=== PATIENT | female | born 1960 | race Caucasian/White ===

== ENCOUNTER 2019-06-04 01:06 | Day surgery (SDC) | payer OTHER, SELFPAY ==
[2019-06-02 13:51] VITALS: BMI 48.0
--- NOTE | 2019-06-04 09:20 | PM.HPGS ---
History of Present Illness History of Present Illness Consent: Risks, benefits, and alternatives have been discussed and questions answered. Patient agrees to proceed with procedure. Chief complaint: Neoplasm Screening Narrative: Bree Iraheta is a 59 year old female for screening colonoscopy. There is a family history of colon cancer Meds Home Medications and Allergies Home Medications Medication Instructions Recorded Confirmed Type B-complex with vitamin C [Super B 1 tablet PO DAILY 06/02/19 06/02/19 History Complex-Vitamin C] Centrum Silver 1 tablet PO DAILY 06/02/19 06/02/19 History apixaban [Eliquis] 2.5 mg PO BID 06/02/19 06/02/19 History aripiprazole 2 mg PO DAILY 06/02/19 06/02/19 History biotin-silicon hmsq-E-kicpmirf 1 tablet PO DAILY 06/02/19 06/02/19 History budesonide-formoterol [Symbicort] 2 puff INHALATION BID 06/02/19 06/02/19 History diphenhydramine HCl [Allergy 25 mg PO HS PRN 06/02/19 06/02/19 History Medicine] escitalopram oxalate 20 mg PO DAILY 06/02/19 06/02/19 History hydrochlorothiazide 25 mg PO DAILY 06/02/19 06/02/19 History Allergies Allergy/AdvReac Type Severity Reaction Status Date / Time No Known Allergies Allergy Mild Verified 06/02/19 13:46 Exam Resp: Auscultation: clear to auscultation bilaterally Cardio: Rate: regular rate Rhythm: regular rhythm GI: GI Palp: Yes Soft to palpation and No Tenderness to palpation present (GI) Assessment and Plan Assessment and plan (1) Colon cancer screening: Code(s): Z12.11 - Encounter for screening for malignant neoplasm of colon Status: Acute Assessment and Plan: Colonoscopy with possible biopsy or polypectomy or cautery or injection of substances.
[2019-06-04 09:38] VITALS: BP 122/63; PULSE 76; RESP 18; TEMP 37.1; O2SAT 95
[2019-06-04] MEDS: LACTATED RINGERS 1,000 ML 150 ML IV CONT (09:52)
[2019-06-04 09:54] VITALS: BMI 46.4
--- NOTE | 2019-06-04 10:04 | WPDANESEPPF ---
Anes - Initial Pre Proc Eval Procedure: Operation Date: 06/04/19 10:00 Proposed Procedures p Screening Colonoscopy - Jordan Pérez MD Date/Time: 06/04/19 10:04 Surgeon: Jordan Pérez MD Pre Op Diagnosis: Neoplasm Screening Patient Data Age: 59 Gender: F Height: 5 ft 7 in Weight: 134.4 kg Last Vital Signs Temp 98.7 F 06/04/19 09:38 Pulse 76 06/04/19 09:38 Resp 18 06/04/19 09:38 BP 122/63 06/04/19 09:38 Pulse Ox 95 06/04/19 09:38 Allergies Allergy/AdvReac Type Severity Reaction Status Date / Time No Known Allergies Allergy Mild Verified 06/02/19 13:46 Home Medications Medication Instructions Recorded Confirmed Type B-complex with vitamin C [Super B 1 tablet PO DAILY 06/02/19 06/02/19 History Complex-Vitamin C] Centrum Silver 1 tablet PO DAILY 06/02/19 06/02/19 History apixaban [Eliquis] 2.5 mg PO BID 06/02/19 06/04/19 History aripiprazole 2 mg PO DAILY 06/02/19 06/04/19 History biotin-silicon mgid-T-nxmrzbaz 1 tablet PO DAILY 06/02/19 06/02/19 History budesonide-formoterol [Symbicort] 2 puff INHALATION BID 06/02/19 06/02/19 History diphenhydramine HCl [Allergy 25 mg PO HS PRN 06/02/19 06/02/19 History Medicine] escitalopram oxalate 20 mg PO DAILY 06/02/19 06/02/19 History hydrochlorothiazide 25 mg PO DAILY 06/02/19 06/02/19 History Patient hx anesthesia problems: none Family hx anesthesia problems: none Anes - Eval Final PreProcedure Day of Procedure 06/04/19 10:04 Patient weight: morbidly obese Heart: regular rate and rhythm Lungs: clear to auscultation Airway: Mallampati scale class III Neurological: alert and oriented Last oral intake: >/= 8 hours ASA classification: III Emergent: no Anesthetic plan: proceed Anesthesia type and monitoring: general GIVS and standard monitoring Informed Consent: The patient's anesthetic plan and its attendant risks and benefits were discussed with the patient/family/POA. Questions were solicited and answers provided to the satisfaction of the patient/family/POA.
[2019-06-04 10:25] VITALS: BP 89/53; PULSE 74; RESP 18; O2SAT 94
[2019-06-04 10:35] VITALS: BP 115/74; PULSE 81; RESP 25; O2SAT 94
[2019-06-04 10:45] VITALS: BP 115/65; PULSE 72; RESP 17; O2SAT 94
== END 2019-06-04 10:54 | disposition home or self-care (01) ==
PROVIDERS: PCP Family Medicine Adolescent Medicine; Visit Provider Internal Medicine Gastroenterology
PROC: 0DJD8ZZ Inspection of Lower Intestinal Tract, Via Natural or Artificial Opening Endoscopic (ICD-10-PCS; CPT 45378; principal; 2019-06-04 10:00)
DX: Z12.11 Encounter for screening for malignant neoplasm of colon (principal); D12.3 Benign neoplasm of transverse colon; D12.8 Benign neoplasm of rectum; K57.30 Diverticulosis of large intestine without perforation or abscess without bleeding; Z80.0 Family history of malignant neoplasm of digestive organs; Z79.01 Long term (current) use of anticoagulants; E66.01 Morbid (severe) obesity due to excess calories; Z68.42 Body mass index [BMI] 45.0-49.9, adult
CPT/HCPCS: 45380; 88305; J2704; J7120

== ENCOUNTER 2023-10-01 15:04 | Outpatient (CLI) | payer OTHER, MEDICARE, SELFPAY ==
--- NOTE | ~2023-10-01 | US_ITS ---
Thyroid ultrasound. Clinical History: Swelling, lump Findings: Real-time sonography of the thyroid gland was performed. The right lobe measures 5.2 x 1.9 x 1.4 cm. The left lobe measures 4.2 x 1.3 x 1.4 cm. The isthmus is 4 mm in AP diameter. There are 2 separate 3 mm hypoechoic nodules at the inferior right thyroid lobe. Impression: Tiny right thyroid lobe nodules, as above, which requires no further follow-up.. Reviewed, dictated and finalized at location M. Impression: Tiny right thyroid lobe nodules, as above, which requires no further follow-up. .
== END 2023-10-01 15:05 ==
LOC: MICIMG 15:06
PROVIDERS: PCP Family Medicine Adolescent Medicine; Visit Provider Nurse Practitioner Family
DX: E04.2 Nontoxic multinodular goiter (principal); R22.1 Localized swelling, mass and lump, neck
CPT/HCPCS: 76536

== ENCOUNTER 2024-07-01 13:47 | Outpatient (CLI) | payer OTHER, MEDICARE, SELFPAY ==
--- NOTE | ~2024-07-01 | CT_ITS ---
Non-contrast CT scan of the Abdomen and Pelvis Clinical indication: Right lower quadrant pain Technique: 2.5 mm axial scans were obtained through the abdomen and pelvis without intravenous or or al contrast. Dose reduction technique was used on this scan by utilizing automated exposure control a nd iterative reconstruction technique. The dose-length product (DLP) was 1097.73 mGy-cm. Findings: Images through the lung bases reveal 3 mm right middle lobe nodule. There is no evidence of renal or ureteral calculi. The kidneys and the ureters are nondilated. The liver, spleen, pancreas, and adrenals appear normal. Cholecystectomy clips are present. There is no aortic aneurysm. There is no evidence of bowel obstruction. Duodenal diverticulum noted. Images through the pelvis were performed. There is no evidence of ascites or lymphadenopathy. Urinary bladder unremarkable. Calcified uterine fibroid present. No other adnexal mass. Impression: No acute abnormality. Calcified fibroid. 3 mm right middle lobe nodule. Consider 12 month follow-up CT for a high-risk patient. Reviewed, dictated and finalized at location . Impression: No acute abnormality. Calcified fibroid. 3 mm right middle lobe nodule. Consider 12 month follow[facility]
== END 2024-07-01 13:48 | disposition home or self-care (01) ==
LOC: MICIMG 13:48
PROVIDERS: PCP Family Medicine Adolescent Medicine; Visit Provider Nurse Practitioner Family
DX: D25.9 Leiomyoma of uterus, unspecified (principal); R91.1 Solitary pulmonary nodule
CPT/HCPCS: 74176

== ENCOUNTER 2024-10-30 01:32 | Day surgery (SDC) | payer OTHER, MEDICARE, SELFPAY ==
[2024-10-17 13:13] VITALS: BMI 43.0
--- NOTE | 2024-10-17 13:31 | PC.NURSE ---
Spoke with PATIENT regarding medication ELIQUIS. PATIENT verbalizes understanding that the last dose is to be taken on 10/27/2024 and the Endoscopist will instruct them when to restart after the procedure.
--- OUTSIDE RECORDS SUMMARY | 2024-10-30 01:36 | XMS_ITS | Clinical Summary ---
Author Organization [facility] [address] [facility] Address [address] [place] [address] Care Team Providers Care Basting Marker Name Role Phone Bismark De La Rosa MD Primary Care Prov ider Chiqui Rhodes MD Unavailable [phone] Allergies No known active allergies Medications Eliquis 2.5 mg tablet 1 Active hydroCHLOROthia zide (HYDRODIURIL) 25 mg tablet 1 Active vitamin B complex capsule Take 1 capsule by mouth daily Active biotin 10,000 mcg capsule Active buPROPion XL (WELLBUTRIN XL) 150 mg 24 hr tablet 4 Active cholecalciferol (VITAMIN D-3) 5,000 unit capsule 5 Active FLUoxetine (PROzac) 40 mg capsule 3 Active multivitamin tablet 0 Active traZODone (DESYREL) 50 mg tablet 4 Active fluticasone-ume clidin-vilanter (Trelegy Ellipta) 200-62.5-25 mcg inhaler Inhale 1 puff daily 10 each 11 5 Active albuterol HFA (PROVENTIL HFA,VENTOLIN HFA,PROAIR HFA) 90 mcg/actuation inhalerIndicati ons:Shortness of breath USE 2 INHALATIONS BY MOUTH EVERY 6 HOURS NEEDED FOR WHEEZING OR SHORTNESS OF BREATH 25.5 g 3 5 Active montelukast (SINGULAIR) 10 mg tabletIndicatio ns:Shortness of breath TAKE 1 TABLET BY MOUTH NIGHTLY 90 tablet 3 5 Active Active Problems Problem Noted Date Diagnosed Date Snoring 07/23/2024 Assessment & Plan (07/23/2024 1:29 PM CDT): The patient presents with snoring and daytime hypersomnia. I have recommended proceeding with a nocturnal polysomnogram with a split night protocol if necessary and no MSLT. She will follow up here in 4 months. Morbid (severe) obesity due to excess calories 1 Body mass index (BMI) 45.0-49.9, adult 3 Encounters Date Type Department Care Team Description 09/30/2024 Telephone [facility] [address] [place] [address] Anna Bravo, [facility] Sleep Study Results 09/29/2024 Orders Only [facility] [place] [address] [place] [phone] Roberto Lainez MD HUMBERTO (obstructive sleep apnea) (Primary Dx) 09/26/2024 7:55 PM CDT - 09/26/2024 11:59 PM CDT Hospital Encounter [facility] [address] [place] [address] Snoring; Hypersomnia, unspecified Discharge Disposition: Discharge to home or self care 09/10/2024 3:12 PM CDT - 09/10/2024 11:59 PM CDT Hospital Encounter [facility] [address] [place] [phone] Screening mammogram, encounter for Discharge Disposition: Discharge to home or self care 08/20/2024 2:15 PM CDT - 08/20/2024 11:59 PM CDT Hospital Encounter [facility] [address] [place] [address] Asthma, unspecified asthma severity, unspecified whether complicated, unspecified whether persistent Discharge Disposition: Discharge to home or self care from Last 3 Months Immunizations Immunization Administration Dates Next Due Influenza, Trivalent, High D ose, Split, Preservative Free, Intramuscular 12/25/2023 Surgical History Surgery Date Site/Laterality Comments BREAST LUMPECTOMY Medical History Medical History Date Comments Asthma Pneumonia Family History Medical History Relation Name Comments No Known Problems Mother Breast cancer Mother's Sister Relation Name Status Comments Father Mother Alive Mother's Sister Social History Tobacco Use Types Packs/Day Years Used Date Smoking Tobacco: Former Cigarettes 1.5 6 1 04/05/1976 - 02/03/1983 Smokeless Tobacco: Never Tobacco Cessation:Counseling Given: Not Answered Comments No Sex and Gender Information Value Date Recorded Sex Assigned at Not on file Legal Sex Female 1:19 AM CAT DRIVER Gender Identity Female 04/07/2021 4:53 PM CAT DRIVER Sexual Orientation Not on file Obstetrics History Para Term AB IAB SAB Ectopic Multiple Livin g Live Births 2 2 2 Date Outcome GA Total Labor Labor/2nd/3rd Weight Sex Type Anes PTL Yovana A1 A5 Name Clin Term Term Last Filed Vital Signs Vital Sign Reading Time Taken Comments Blood Pressure 131/80 07/23/2024 1:06 PM CDT Pulse 79 07/23/2024 1:06 PM CDT Temperature 37.1 C (98.8 F) 07/23/2024 1:06 PM CDT Respiratory Rate 18 07/23/2024 1:06 PM CDT Oxygen Saturation 97% 07/23/2024 1:06 PM CDT Inhaled Oxygen Concentration - - Weight 129.3 kg (285 lb) 07/23/2024 1:06 PM CDT Height 170.2 cm (5' 7.01) 07/23/2024 1:06 PM CD T Body Mass Index 44.63 07/23/2024 1:06 PM CDT Plan of Treatment Health Maintenance Due Date Last Done Comments Colon Cancer Screening-Colonoscopy 1960 Depression Screening 1958 Fall Risk Assessment 1960 Hepatitis C Screening 1960 DTaP/Tdap/Td Vaccine (1 - Tdap) 1969 Hepatitis B Screening 01/05/1976 Pneumococcal vaccine 65+ (1 of 2 - PCV) 1977 Zoster Vaccine (1 of 2) 01/05/2008 Well Visit 65+ 2023 Influenza Vaccine (#1) 2024 12/25/2023 Osteoporosis Screening-Bone Density Scan 03/29/2025 03/29/2023, 09/29/2019 Breast Cancer Screening-Mammogram 09/10/2025 09/10/2024, 03/29/2023, 03/16/2022, Additional history exists Procedures Procedure Name Priority Date/Time Associated Diagnosis Comments PSG (COMPLEX) Routine 09/26/2024 7:55 PM CDT Snoring Hypersomnia, unspecified SCREENING MAMMOGRAM BILATERAL W RACHID Schedule Routine, Read Routine (OP Routine) 09/10/2024 3:27 PM CDT Screening mammogram, encounter for PULMONARY FUNCTION TEST (PFT) Routine 08/20/2024 3:30 PM CDT Asthma, unspecified asthma severity, unspecified whether complicated, unspecified whether persistent DEXA AXIAL SKELETON BONE DENSITY 1 OR MORE SITES Schedule Routine, Read Routine (OP Routine) 03/29/2023 12:59 PM CAT DRIVER Asymptomatic menopausal state from Last 3 Months or Most Recently Relevant to Health Maintenance Results * PSG-Sleep Provider Use Only (09/26/2024 7:55 PM CDT) us Roberto Lainez MD [facility] ORDERABLES F inal Result [facility] [address] [place] [id number] * Screening Mammogram Bilateral W Rachid (09/10/2024 3:27 PM CDT) Anatomical Region Laterality Modality Breast Bilateral Mammography Impressions 09/10/2024 6:26 PM CDT BI-RADS ATLAS category (overall): 2 - Benign There is no mammographic evidence of malignancy. Unilateral left breast varicosities noted. A 1 year screening mammogram is recommended. The patient has been or will be contacted. We recommend annual screening mammography for women at average risk of breast cancer beginning at age 40, based on guidelines of the [employer] (ACR Practice Parameter for the Performance of Screening and Diagnostic Mammography) and [employer]. For women with and elevated risk of breast cancer, please refer to the ACR Practice Parameter for specific screening recommendations. The patient will be entered into a reminder system with a target due date of 1 year for her next screening exam. Narrative 09/10/2024 6:26 PM CDT Screening Mammogram Bilateral W Rachid: 09/10/24 The study was acquired using full field digital technology and interpreted from soft copy. 2D digital mammographic views, as well as 3D digital tomosynthesis were performed in the CC and MLO projections. CLINICAL: Screening mammogram, encounter for. No relevant medical history has been documented for this patient. History of breast cancer in Mother's Sister. COMPARISONS: 03/29/2023 Screening Mammogram Bilateral W Rachid 03/16/2022 Screening Mammogram Bilateral W Rachid 10/26/2020 Diagnostic Mammogram Left W Rachid 05/06/2020 US Breast Left Limited 05/06/2020 Diagnostic Mammogram Left W Rachid 10/09/2019 US Breast Left Limited 09/29/2019 Screening Mammogram Bilateral W Rachid BREAST TISSUE: The breasts are almost entirely fatty. FINDINGS: A biopsy marker clip is unchanged in the left breast. Unchanged benign masses in both breasts. Left breast varicosities unchanged. There is no new suspicious finding in either breast on mammogram. us Self Screening Mammogram IMG MAMMO PROCEDURES Fi nal Result * Pulmonary Function Test - (08/20/2024 3:30 PM CDT) FVC POST 3.50 L 08/20/2024 4:02 PM CDT [facility] FEV1 POST 2.29 L 08/20/2024 4:02 PM CDT [facility] [id number] 65.39 % 08/20/2024 4:02 PM CDT [facility] HCF83-22% POST 1.16 L/s 08/20/2024 4:02 PM CDT [facility] PEF POST 5.92 L/s 08/20/2024 4:02 PM CDT [facility] DLCOc SB 19.92 ml/(min*mm Hg) 08/20/2024 4:02 PM CDT [facility] DLCO/VA PRE 4.46 ml/(min*mm Hg*L) 08/20/2024 4:02 PM CDT [facility] VA 4.47 L 08/20/2024 4:02 PM CDT [facility] TLC PRE 4.45 L 08/20/2024 4:02 PM CDT [facility] VC PRE 3.50 L 08/20/2024 4:02 PM CDT [facility] IC PRE 3.08 L 08/20/2024 4:02 PM CDT [facility] FRC PL PRE 1.49 L 08/20/2024 4:02 PM CDT [facility] ERV PRE 0.54 L 08/20/2024 4:02 PM T [facility] RV PRE 0.95 L 08/20/2024 4:02 PM CDT [facility] RAW PRE 5.10 cmH2O*s/L 08/20/2024 4:02 PM T [facility] VTG 3.15 L 08/20/2024 4:02 PM T [facility] FVC PRE 3.32 L 08/20/2024 4:02 PM T [facility] FEV1 PRE 2.09 L 08/20/2024 4:02 PM T [facility] [id number] 62.85 % 08/20/2024 4:02 PM T [facility] IRV85-60% PRE 0.77 L/s 08/20/2024 4:02 PM [facility] PEF PRE 5.17 L/s 08/20/2024 4:02 PM [facility] Anatomical Region Laterality Modality PFT 08/20/2024 2:29 PM CDT Narrative 08/20/2024 5:32 PM CDT Spirometry shows mild obstructive ventilatory defect without response to bronchodilators. Flow volume loop is suggestive of obstructive airway disease. Lung volumes show residual volume is decreased. Gas exchange capacity is normal. Electronically signed by Yecenia Ovalles MD Ari Krishnamurthy MD PFT ORDERABLES Final Result * Dexa Axial Skeleton Bone Density 1 or 2 Site (03/29/2023 12:59 PM CAT DRIVER) Anatomical Region Laterality Modality Body N/A Mammography 03/29/2023 1:06 PM CAT DRIVER Narrative 03/29/2023 1:07 PM CAT DRIVER EXAM DESCRIPTION: DEXA AXIAL SKELETON BONE DENSITY 1 OR MORE SITES REASON FOR STUDY: 63 y/o year old F with given history of: Postmenopausal status. History of parent with hip fracture. Patient has taken/is taking vitamin-D. History of asthma or emphysema. Ammonia Still Operator/Model: Supportie A (S/N [id number]) CLINICAL INFORMATION: Current height: 66.5 inches Maximum height: 67 inches Weight: 289 pounds Risk factors: Parent with hip fracture COMPARISON: 09/29/2019 FINDINGS: AP LUMBAR SPINE L1-L4: Total BMD is 1.389 g/cm2 T-score is 3.1 Dissimilar scan types or analysis methods precludes assessment for calculating a significant change. LEFT HIP: Total BMD is 1.207 g/cm2 T-score is 2.2 This is a 3.9% increase in comparison to prior exam which is statistically significant. Femoral neck BMD is 1.212 g/cm2 T-score is 3.3 FRAX: FRAX not reported due to T-scores of hip, femoral neck and/or spine being at or above -1.0 (Normal). IMPRESSION: Normal bone mass. REFERENCE: Bone mineral density: Normal (T-score above or = -1.0) Low bone mass (T-score between -1.0 and -2.5) replaces the previously used term osteopenia Osteoporosis (T-score = or below -2.5) Medical evaluation for secondary causes of low bone mineral density may be appropriate. FRAX is a World Health Organization validated fracture risk assessment tool that calculates a person's 10 year probability of a major osteoporosis related fracture and hip fracture. According to the National Osteoporosis Foundation guidelines, postmenopausal women and men age 50 or older with low bone mass and a 10 year probability of a major osteoporosis related fracture = or greater than 20% or a 10 year probability of a hip fracture = or greater than 3% should be considered for treatment. For further information, including treatment recommendations, please refer to the 2019 ISCD Official Positions (http://www.iscd.org) and the NOF's Clinician's Guide to Prevention and Treatment of Osteoporosis (http://www.nof.org/professionals/clinical-guidelines) THIS IS AN ELECTRONICALLY VERIFIED FINAL REPORT 03/29/2023 1:07 PM - Electronically signed by Reyna Lindsey M.D. TW: TW Report ID: [id number] Reading Location: [id number] Procedure Note Reyna Lindsey MD - 03/29/2023 EXAM DESCRIPTION: DEXA AXIAL SKELETON BONE DENSITY 1 OR MORE SITES REASON FOR STUDY: 63 y/o year old F with given history of:Postmenopausal status. History of parent with hip fracture. Patient has taken/is taking vitamin-D. History of asthma or emphysema. Ammonia Still Operator/Model: Supportie A (S/N [id number]) CLINICAL INFORMATION: Current height: 66.5 inches Maximum height: 67 inches Weight: 289 pounds Risk factors: Parent with hip fracture COMPARISON: 09/29/2019 FINDINGS: AP LUMBAR SPINE L1-L4: Total BMD is 1.389 g/cm2 T-score is 3.1 Dissimilar scan types or analysis methods precludes assessment for calculating a significant change. LEFT HIP: Total BMD is 1.207 g/cm2 T-score is 2.2 This is a 3.9% increase in comparison to prior exam which is statistically significant. Femoral neck BMD is 1.212 g/cm2 T-score is 3.3 FRAX: FRAX not reported due to T-scores of hip, femoral neck and/or spine beingat or above -1.0 (Normal). IMPRESSION: Normal bone mass. REFERENCE: Bone mineral density: Normal (T-score above or = -1.0) Low bone mass (T-score between -1.0 and -2.5) replaces thepreviously used term osteopenia Osteoporosis (T-score = or below -2.5) Medical evaluation for secondary causes of low bone mineral density may be appropriate. FRAX is a World Health Organization validated fracture risk assessmenttool that calculates a person's 10 year probability of a major osteoporosisrelated fracture and hip fracture. According to the National OsteoporosisFoundation guidelines, postmenopausal women and men age 50 or older with low bonemass and a 10 year probability of a major osteoporosis related fracture = or greater than 20% or a 10 year probability of a hip fracture = or greaterthan 3% should be considered for treatment. For further information, including treatment recommendations, please referto the 2019 ISCD Official Positions (http://www.iscd.org) and the NOF's Clinician's Guide to Prevention and Treatment of Osteoporosis (http://www.nof.org/professionals/clinical-guidelines) THIS IS AN ELECTRONICALLY VERIFIED FINAL REPORT 03/29/2023 1:07 PM - Electronically signed by Reyna Lindsey M.D. TW: JOSE Report ID: [id number] Reading Location: [place] [address] Megan Dai NP IMG DXA PROCEDURES Final Re sult from Last 3 Months or Most Recently Relevant to Health Maintenance [place] [id number] [facility]/PPO Address: [facility] [address] [place] [address] [facility]O Address: [address] [address] [place] [id number] [facility]/PPO Address: [address] [address] [place] [address] MEDICARE RAILROAD Care Teams Basting Marker Relationship Specialty Start Date End Date Bismark De La Rosa MD [address] [place] [address] PCP - General Family Medicine 09/07/20 Chiqui Rhodes MD [address] [address] Referring Physician Gynecology 03/16/22
--- NOTE | 2024-10-30 08:56 | WPDANESEPPF ---
Anes - Initial Pre Proc Eval Procedure: Operation Date: 10/30/24 11:00 Proposed Procedures p Screening Colonoscopy - Geovany Hodge MD Date/Time: 10/30/24 08:56 Surgeon: Geovany Hodge MD Pre Op Diagnosis: Personal history of colon polyps, unspecified Patient Data Age: 64 Gender: F Height: 1.7 m Weight: 124.8 kg Allergies Allergy/AdvReac Type Severity Reaction Status Date / Time No Known Allergies Allergy Mild Verified 10/17/24 13:02 Home Medications ?Medication ?Instructions ?Recorded ?Confirmed ?Type B-complex with vitamin C (Super B 1 tablet PO DAILY 06/02/19 10/30/24 History Complex-Vitamin C tablet) Centrum Silver 1 tablet PO DAILY 06/02/19 10/30/24 History biotin 3,000 mcg-silicon dioxide 1 tablet PO DAILY 06/02/19 10/17/24 History 100 [id number]-E-feeoyodh 50 mg tablet ER cholecalciferol (vitamin D3) 125 125 mcg PO DAILY 05/23/21 10/30/24 History mcg (5,000 unit) capsule montelukast 10 mg tablet 10 mg PO QHS 05/23/21 10/30/24 History coffee extract 100 mg-phosphatidyl 1 cap PO DAILY 01/09/23 10/30/24 History serine 100 mg capsule (Neuriva Original) fluticasone fur. 100 mcg-umeclid 1 inh inhalation Q24H 01/09/23 10/30/24 History 62.5 mcg-vilant 25 mcg inhalat.powder (Trelegy Ellipta) lorazepam 0.5 mg tablet 0.5 mg PO BID PRN anxiety #30 tabs 02/22/23 10/17/24 Rx semaglutide (weight loss) 0.25 0.25 mg subcut WEEKLY 06/16/24 10/17/24 History mg/0.5 mL subcutaneous pen injector bupropion HCl 150 mg 24 hr tablet, 150 mg PO QAM #90 tabs 07/29/24 10/30/24 Rx extended release atorvastatin 20 mg tablet See Rx Instructions .Route 09/18/24 10/30/24 Rx .COMPLEX #90 tabs escitalopram oxalate 10 mg tablet See Rx Instructions .Route 09/18/24 10/30/24 Rx .COMPLEX #90 tabs hydrochlorothiazide 25 mg tablet See Rx Instructions .Route 09/18/24 10/30/24 Rx .COMPLEX #90 tabs apixaban 2.5 mg tablet (Eliquis) See Rx Instructions .Route 09/24/24 10/30/24 Rx .COMPLEX #180 tabs albuterol sulfate 90 mcg/actuation 2 puff inhalation Q4-6H PRN 10/17/24 10/17/24 History aerosol inhaler shortness of breath or wheezing cetirizine 10 mg tablet (24Hour 10 mg PO DAILY 10/17/24 10/30/24 History Allergy) magnesium glycinate 200 mg PO DAILY 10/17/24 10/30/24 History tirzepatide (weight loss) 2.5 2.5 mg subcut WEEKLY 10/17/24 10/30/24 History mg/0.5 mL subcutaneous solution trazodone 50 mg tablet 50 mg PO HS 10/17/24 10/30/24 History Patient hx anesthesia problems: none Family hx anesthesia problems: none Results Review: All pre-operative results and documents have been reviewed as part of the pre-operative evaluation. [facility] Past Medical History Medical History Major depressive disorder, recurrent, moderate Prediabetes A1c 5.8, 09/24/2020 Morbid obesity with BMI of 50.0-59.9, adult Hypertension Mild persistent asthma History of DVT (deep vein thrombosis) Surgical History Surgical History History of left breast biopsy Family History Family History Sibling Diabetes mellitus Hyperlipidemia Hypercoagulable state Father Hyperlipidemia Mother Hyperlipidemia Heart disease Cancer of kidney Lung cancer Hypercoagulable state Social History Social History Smoking packs per day: 1.5 Smoking cigarettes per day: 30.0 Years smoked: 5 Smoking pack-years: 7.50 Smoking status: Former smoker Tobacco type: cigarettes Second hand tobacco smoke exposure: Yes Smoking end date: 02/03/83 Alcohol intake: never Substance use: never Substance use type: does not use Living arrangements: with family Occupation/Education: retired Gender identity (if verbalized by the patient): Female Sexual Orientation (if Verbalized by the Patient): Straight or Heterosexual Spiritual care concerns: No Agree to blood products: Yes Anes - Eval Final PreProcedure Day of Procedure 10/30/24 08:56 Patient weight: morbidly obese Heart: regular rate and rhythm Lungs: clear to auscultation Airway: Mallampati scale class II Neurological: alert and oriented Last oral intake: >/= 8 hours ASA classification: III Emergent: no Anesthetic plan: proceed Anesthesia type and monitoring: general GIVS and standard monitoring Results Review: All pre-operative results and documents have been reviewed as part of the pre-operative evaluation. Informed Consent: The patient's anesthetic plan and its attendant risks and benefits were discussed with the patient/family/POA. Questions were solicited and answers provided to the satisfaction of the patient/family/POA.
[2024-10-30 10:19] VITALS: BP 145/68; PULSE 64; RESP 18; TEMP 36.7; O2SAT 94
[2024-10-30] MEDS: LACTATED RINGERS 1,000 ML 150 ML IV CONT (10:28)
--- NOTE | 2024-10-30 11:01 | PM.HPGS ---
History of Present Illness History of Present Illness Consent: Risks, benefits, and alternatives have been discussed and questions answered. Patient agrees to proceed with procedure. Chief complaint: Personal history of colon polyps, unspecified Narrative: Bree Iraheta is a 64 year old female with colon polyp in 2019 Review of Systems Review of Systems: All systems reviewed & are unremarkable except as noted in HPI and below PMFSH Past Medical History Medical History (Updated 10/30/24 @ 11:02 by Geovany Hodge MD) Colon polyp Major depressive disorder, recurrent, moderate Prediabetes A1c 5.8, 09/24/2020 Morbid obesity with BMI of 50.0-59.9, adult Hypertension Mild persistent asthma History of DVT (deep vein thrombosis) Surgical History Surgical History History of left breast biopsy Family History Family History Sibling Diabetes mellitus Hyperlipidemia Hypercoagulable state Father Hyperlipidemia Mother Hyperlipidemia Heart disease Cancer of kidney Lung cancer Hypercoagulable state Social History Social History Smoking packs per day: 1.5 Smoking cigarettes per day: 30.0 Years smoked: 5 Smoking pack-years: 7.50 Smoking status: Former smoker Tobacco type: cigarettes Second hand tobacco smoke exposure: Yes Smoking end date: 02/03/83 Alcohol intake: never Substance use: never Substance use type: does not use Living arrangements: with family Occupation/Education: retired Gender identity (if verbalized by the patient): Female Sexual Orientation (if Verbalized by the Patient): Straight or Heterosexual Spiritual care concerns: No Agree to blood products: Yes Meds Home Medications and Allergies Home Medications ?Medication ?Instructions ?Recorded ?Confirmed ?Type B-complex with vitamin C (Super B 1 tablet PO DAILY 06/02/19 10/30/24 History Complex-Vitamin C tablet) Centrum Silver 1 tablet PO DAILY 06/02/19 10/30/24 History biotin 3,000 mcg-silicon dioxide 1 tablet PO DAILY 06/02/19 10/17/24 History 100 [id number]-mtfmgtdh 50 mg tablet ER cholecalciferol (vitamin D3) 125 125 mcg PO DAILY 05/23/21 10/30/24 History mcg (5,000 unit) capsule montelukast 10 mg tablet 10 mg PO QHS 05/23/21 10/30/24 History coffee extract 100 mg-phosphatidyl 1 cap PO DAILY 01/09/23 10/30/24 History serine 100 mg capsule (Neuriva Original) fluticasone fur. 100 mcg-umeclid 1 inh inhalation Q24H 01/09/23 10/30/24 History 62.5 mcg-vilant 25 mcg inhalat.powder (Trelegy Ellipta) lorazepam 0.5 mg tablet 0.5 mg PO BID PRN anxiety #30 tabs 02/22/23 10/17/24 Rx semaglutide (weight loss) 0.25 0.25 mg subcut WEEKLY 06/16/24 10/17/24 History mg/0.5 mL subcutaneous pen injector bupropion HCl 150 mg 24 hr tablet, 150 mg PO QAM #90 tabs 07/29/24 10/30/24 Rx extended release atorvastatin 20 mg tablet See Rx Instructions .Route 09/18/24 10/30/24 Rx .COMPLEX #90 tabs escitalopram oxalate 10 mg tablet See Rx Instructions .Route 09/18/24 10/30/24 Rx .COMPLEX #90 tabs hydrochlorothiazide 25 mg tablet See Rx Instructions .Route 09/18/24 10/30/24 Rx .COMPLEX #90 tabs apixaban 2.5 mg tablet (Eliquis) See Rx Instructions .Route 09/24/24 10/30/24 Rx .COMPLEX #180 tabs albuterol sulfate 90 mcg/actuation 2 puff inhalation Q4-6H PRN 10/17/24 10/17/24 History aerosol inhaler shortness of breath or wheezing cetirizine 10 mg tablet (24Hour 10 mg PO DAILY 10/17/24 10/30/24 History Allergy) magnesium glycinate 200 mg PO DAILY 10/17/24 10/30/24 History tirzepatide (weight loss) 2.5 2.5 mg subcut WEEKLY 10/17/24 10/30/24 History mg/0.5 mL subcutaneous solution trazodone 50 mg tablet 50 mg PO HS 10/17/24 10/30/24 History Allergies Allergy/AdvReac Type Severity Reaction Status Date / Time No Known Allergies Allergy Mild Verified 10/17/24 13:02 Vital Signs Vital Signs - 24 hr 10/30/24 10:19 Temperature 98.0 F Pulse Rate 64 Respiratory Rate 18 Blood Pressure 145/68 H Pulse Oximetry 94 Oxygen Delivery Room Air Exam Const: General: comfortable and no acute distress HENMT: Face/Nose/Sinus: Normal nares present Eyes: General: appearance normal, both eyes and all related structures Neck: Neck: no JVD Resp: Auscultation: clear to auscultation bilaterally Cardio: Rate: regular rate Rhythm: regular rhythm GI: Inspection: non-distended GI Palp: Yes Soft to palpation Skin: General skin exam: normal color Neuro: Speech: normal speech Extrem: General: normal to inspection Psych: Mental Status: mental status grossly normal Assessment and Plan Assessment and plan (1) Colon polyp: Code(s): K63.5 - Polyp of colon Status: Acute Assessment and Plan: colonoscopy
--- NOTE | 2024-10-30 11:24 | S_PTH ---
PATIENT: Bree Iraheta LOC: [facility]#:[id number] AGE/SX: 64/F ROOM: RE10/30/[address]: Geovany Hodge MD : 1960 BED: DIS: 10/30/2024 SPEC #: [id number] RECD: 10/30/24 13:36 STATUS: YOLANDA REKareem #: [id number] RENZO: 10/30/24 11:[address]: Geovany Hodge DEPT: [facility] Surgical RECD BY: Bess Godinez ENTERED: 10/30/24 13:37 SP TYPE: Surgical OTHR DR: Carolina Oliva, FADY Tissues: A - Colon Polypectomy B - Colon Polypectomy Procedures: Hematoxylin and Eosin Stain Gross and Microscopic Level 4
[2024-10-30 11:31] VITALS: BP 112/46; PULSE 81; RESP 16; O2SAT 97
[2024-10-30 11:41] VITALS: BP 113/37; PULSE 72; RESP 20; O2SAT 97
[2024-10-30 11:51] VITALS: BP 116/67; PULSE 67; RESP 20; O2SAT 95
== END 2024-10-30 12:06 | disposition home or self-care (01) ==
PROVIDERS: PCP Nurse Practitioner Family; Visit Provider Internal Medicine Gastroenterology
PROC: 0DJD8ZZ Inspection of Lower Intestinal Tract, Via Natural or Artificial Opening Endoscopic (ICD-10-PCS; CPT 45378; principal; 2024-10-30 11:00)
DX: Z12.11 Encounter for screening for malignant neoplasm of colon (principal); D12.2 Benign neoplasm of ascending colon; D12.3 Benign neoplasm of transverse colon; K57.30 Diverticulosis of large intestine without perforation or abscess without bleeding; R73.03 Prediabetes; I10 Essential (primary) hypertension; J45.909 Unspecified asthma, uncomplicated; F33.1 Major depressive disorder, recurrent, moderate; E66.01 Morbid (severe) obesity due to excess calories; Z68.41 Body mass index [BMI] 40.0-44.9, adult; Z79.51 Long term (current) use of inhaled steroids; Z79.85 Long-term (current) use of injectable non-insulin antidiabetic drugs; Z79.01 Long term (current) use of anticoagulants; Z98.890 Other specified postprocedural states; Z87.891 Personal history of nicotine dependence; Z86.718 Personal history of other venous thrombosis and embolism; Z80.51 Family history of malignant neoplasm of kidney; Z80.1 Family history of malignant neoplasm of trachea, bronchus and lung; Z82.49 Family history of ischemic heart disease and other diseases of the circulatory system
CPT/HCPCS: 45385; 88305; J2003; J2704; J7120